=== PATIENT | female | born 1940 | race Two or more races ===

== ENCOUNTER 2018-02-11 12:56 | Inpatient (IN) | payer MEDICARE, OTHER ==
[2018-02-11 13:46] LABS: ADD MAN DIFF? NO
[2018-02-11 13:49] LABS: BASOPHILS % 0.6 % (0.0-2.0); EOSINOPHILS # 0.1 10^3/ul (0.0-0.5); EOSINOPHILS % 1.4 % (0.0-7.0); HEMATOCRIT 38.9 % (37.0-47.0); HEMOGLOBIN 12.7 g/dl (12.0-16.0); LYMPHOCYTES # 1.9 10^3/ul (0.8-2.9); LYMPHOCYTES % 37.6 % (15.0-51.0); MEAN CORPUSCULAR HEMOGLOBIN 29.3 pg (29.0-33.0); MEAN CORPUSCULAR HGB CONC 32.6 g/dl (32.0-37.0); MEAN CORPUSCULAR VOLUME 89.6 fl (82.0-101.0); MEAN PLATELET VOLUME 9.6 fl (7.4-10.4); MONOCYTE # 0.5 10^3/ul (0.3-0.9); MONOCYTES % 10.4 % (0.0-11.0); NEUTROPHIL # 2.5 10^3/ul (1.6-7.5); NEUTROPHILS % 49.8 % (39.0-77.0); PLATELET COUNT 193 10^3/UL (140-415); RED BLOOD COUNT 4.34 10^6/ul (4.20-5.40); RED CELL DISTRIBUTION WIDTH 12.4 % (11.5-14.5)
[2018-02-11] MEDS: morphine 4 MG/ML VIAL IV (13:58)
[2018-02-11] MEDS: SOD CHLORIDE 0.9% 2,480 ML IV (13:58)
[2018-02-11] MEDS: ONDANSETRON 4 MG INJ IV (13:58)
[2018-02-11 14:07] LABS: ALANINE AMINOTRANSFERASE 19 IU/L (13-69); ALBUMIN 3.8 g/dl (3.3-4.9); ALBUMIN/GLOBULIN RATIO 1.15; ALKALINE PHOSPHATASE 73 IU/L (42-121); ANION GAP 15 (8-16); ASPARTATE AMINO TRANSFERASE 25 IU/L (15-46); BILIRUBIN,INDIRECT 0.4 mg/dl (0-1.1); BILIRUBIN,TOTAL 0.4 mg/dl (0.2-1.3); BLOOD UREA NITROGEN 14 mg/dl (7-20); CALCIUM 9.2 mg/dl (8.4-10.2); CARBON DIOXIDE 26 mmol/L (21-31); CHLORIDE 105 mmol/L (97-110); CREATINE KINASE 44 IU/L (23-200); CREATININE 0.69 mg/dl (0.44-1.00); GLUCOSE 100 mg/dl (70-220); POTASSIUM 3.9 mmol/L (3.5-5.1); SODIUM 142 mmol/L (135-144); TOTAL PROTEIN 7.1 g/dl (6.1-8.1)
[2018-02-11 14:17] LABS: LACTIC ACID 2.5 mmol/L (0.5-2.0)
[2018-02-11 14:18] LABS: CK INDEX 2.8; CK-MB 1.21 ng/ml (0.0-2.4); TROPONIN-I < 0.012 ng/ml (0.000-0.120)
[2018-02-11 14:25] LABS: INR 0.89; PROTIME 12.1 Sec (11.9-14.9); PT RATIO 0.9
[2018-02-11 14:26] LABS: PARTIAL THROMBOPLASTIN TIME 30.6 Sec (25.0-35.0)
[2018-02-11 15:14] LABS: ADD UMIC YES; UR ASCORBIC ACID NEGATIVE (NEGATIVE); UR BILIRUBIN (Dip) NEGATIVE (NEGATIVE); UR BLOOD (Dip) 1+ mg/dL (NEGATIVE); UR CLARITY CLEAR (CLEAR); UR COLOR COLORLESS (YELLOW); UR GLUCOSE (Dip) NEGATIVE (NEGATIVE); UR KETONES (Dip) NEGATIVE (NEGATIVE); UR LEUKOCYTE ESTERASE (Dip) 2+ Leu/ul (NEGATIVE); UR NITRITE (Dip) NEGATIVE (NEGATIVE); UR RBC 0 /HPF (0-5); UR SPECIFIC GRAVITY (Dip) 1.003 (1.003-1.030); UR TOTAL PROTEIN (Dip) NEGATIVE (NEGATIVE); UR UROBILINOGEN (Dip) NEGATIVE (NEGATIVE); UR WBC 1 /HPF (0-5)
[2018-02-11] MEDS: SODIUM CHLORIDE 0.9% 1L BAG IV* (15:31)
[2018-02-11] MEDS: CEFEPIME 2GM/50 ML (PMX) 50 ML IVPB (15:45)
[2018-02-11 16:40] LABS: LACTIC ACID 1.1 mmol/L (0.5-2.0)
[2018-02-11] MEDS: VANCOMYCIN 1 GM (PMX) 250 ML IVPB (17:22)
[2018-02-11] MEDS ORDERED: ONDANSETRON 4 MG INJ IV ×2 (18:00→19:00)
[2018-02-11] MEDS ORDERED: ACETAMINOPHEN 325 MG TAB PO ×2 (18:00→19:00)
[2018-02-11] MEDS ORDERED: NA PHOSPHATE/BIPHOS 133 ML ENEMA PR (19:00)
[2018-02-11] MEDS ORDERED: ALBUTEROL/IPRATROPIUM (NEB) 3 ML AMP HHN (19:00)
[2018-02-11] MEDS ORDERED: hydrALAzine 20 MG INJ IV (19:00)
[2018-02-11] MEDS ORDERED: morphine 2 MG INJ IV (19:00)
[2018-02-11] MEDS ORDERED: LORAZEPAM 2 MG INJ IV (19:00)
[2018-02-11] MEDS ORDERED: MAGNESIUM HYDROXIDE 30ML CUP PO (19:00)
[2018-02-11] MEDS ORDERED: DOCUSATE SODIUM 100 MG CAP PO (19:00)
[2018-02-11] MEDS ORDERED: NACL 0.9% 3 ML SYG IV (19:00)
[2018-02-11] MEDS ORDERED: HYDROCODONE/APAP (5/325) TAB PO (19:00)
[2018-02-11] MEDS ORDERED: NITROGLYCERIN (SL) 0.4 MG TAB SL (19:00)
[2018-02-11 19:17] LABS: FREE T4 (FREE THYROXINE) 1.33 ng/dl (0.85-1.93)
[2018-02-11 19:31] LABS: LACTIC ACID 1.3 mmol/L (0.5-2.0)
[2018-02-11] MEDS: CEFTRIAXONE 1 GM/50 ML (PMX) 50 ML IVPB (23:26)
[2018-02-11] MEDS: SOD CHLORIDE 0.9% 1,000 ML IV (23:26)
[2018-02-11] MEDS: ASPIRIN (EC) 81 MG TAB PO (23:27)
[2018-02-11] MEDS: GABAPENTIN 100 MG CAP PO (23:27)
[2018-02-12 01:18] LABS: LACTIC ACID 0.9 mmol/L (0.5-2.0)
[2018-02-12] MEDS: HEPARIN 5,000 UNIT/0.5 ML VIAL SC ×2 (01:28→08:28)
[2018-02-12 06:55] LABS: ADD MAN DIFF? NO
[2018-02-12 06:58] LABS: BASOPHILS % 1.1 % (0.0-2.0); EOSINOPHILS # 0.1 10^3/ul (0.0-0.5); EOSINOPHILS % 2.4 % (0.0-7.0); HEMATOCRIT 33.8 % (37.0-47.0); HEMOGLOBIN 11.1 g/dl (12.0-16.0); LYMPHOCYTES # 1.6 10^3/ul (0.8-2.9); LYMPHOCYTES % 43.1 % (15.0-51.0); MEAN CORPUSCULAR HEMOGLOBIN 30.1 pg (29.0-33.0); MEAN CORPUSCULAR HGB CONC 32.8 g/dl (32.0-37.0); MEAN CORPUSCULAR VOLUME 91.6 fl (82.0-101.0); MEAN PLATELET VOLUME 10.1 fl (7.4-10.4); MONOCYTE # 0.4 10^3/ul (0.3-0.9); MONOCYTES % 11.7 % (0.0-11.0); NEUTROPHIL # 1.6 10^3/ul (1.6-7.5); NEUTROPHILS % 41.7 % (39.0-77.0); PLATELET COUNT 158 10^3/UL (140-415); RED BLOOD COUNT 3.69 10^6/ul (4.20-5.40); RED CELL DISTRIBUTION WIDTH 12.9 % (11.5-14.5)
[2018-02-12 06:58] LABS: WHITE BLOOD COUNT 3.8 10^3/ul (4.8-10.8)
[2018-02-12 07:27] LABS: CHOLESTEROL 143 mg/dl (100-200)
[2018-02-12 07:27] LABS: HDL CHOLESTEROL 35 mg/dl (33-92); LDL CHOLESTEROL,CALCULATED 92 mg/dl; TRIGLYCERIDES 80 mg/dl (0-149)
[2018-02-12 07:36] LABS: LACTIC ACID 1.1 mmol/L (0.5-2.0)
[2018-02-12 07:38] LABS: ANION GAP 8 (8-16); BLOOD UREA NITROGEN 11 mg/dl (7-20); CALCIUM 8.2 mg/dl (8.4-10.2); CARBON DIOXIDE 27 mmol/L (21-31); CHLORIDE 111 mmol/L (97-110); CREATININE 0.73 mg/dl (0.44-1.00); GLUCOSE 78 mg/dl (70-220); MAGNESIUM 1.6 mg/dl (1.7-2.5); PHOSPHORUS 3.8 mg/dl (2.5-4.9); POTASSIUM 4.3 mmol/L (3.5-5.1); SODIUM 142 mmol/L (135-144)
[2018-02-12] MEDS: DONEPEZIL 5 MG TAB PO (08:18)
[2018-02-12] MEDS: DICLOFENAC (EC) 25 MG TAB PO (08:18)
[2018-02-12] MEDS: GABAPENTIN 100 MG CAP PO ×2 (08:18→15:01)
[2018-02-12] MEDS: ASPIRIN (EC) 81 MG TAB PO (08:18)
[2018-02-12] MEDS: PANTOPRAZOLE (EC) 40 MG TAB PO (08:18)
[2018-02-12] MEDS: METOPROLOL (XL) 100 MG TAB PO (08:19)
[2018-02-12] MEDS: FOLIC ACID 1 MG TAB PO (08:19)
[2018-02-12 08:27] LABS: HEMOGLOBIN A1C 5.4 % (0-5.9)
[2018-02-12] MEDS: SOD CHLORIDE 0.9% 1,000 ML IV (08:28)
[2018-02-12] MEDS ORDERED: LOSARTAN 50 MG TAB PO (09:00)
[2018-02-12] MEDS ORDERED: AMLODIPINE 5 MG TAB PO (09:00)
[2018-02-12] MEDS: MAGNESIUM SULFATE 2 GM/50 ML 50 ML IVPB (11:40)
[2018-02-12 12:49] LABS: LACTIC ACID 1.1 mmol/L (0.5-2.0)
[2018-02-17] MEDS ORDERED: ALENDRONATE 70 MG TAB PO (06:00)
== END 2018-02-12 15:00 | disposition home or self-care (01) | DRG 872 ==
LOC: E/R 12:56 → TEL 17:34
DX: A41.9 Sepsis, unspecified organism (principal); N39.0 Urinary tract infection, site not specified; R65.20 Severe sepsis without septic shock; R42 Dizziness and giddiness; I10 Essential (primary) hypertension; Z86.73 Personal history of transient ischemic attack (TIA), and cerebral infarction without residual deficits; Z79.82 Long term (current) use of aspirin
CPT/HCPCS: 36415; 70450; 70551; 71045; 80048; 80053; 80061; 81001; 82550; 82553; 83036; 83605; 83735; 84100; 84439; 84443; 84484; 85025; 85610; 85730; 87040; 87086; 93005; 93306; 93880; 96365; 96375; 97161; 97166; 99285-25